=== PATIENT | female | born 1970 | race Caucasian/White ===

== ENCOUNTER 2024-02-06 12:31 | Emergency (ER) | payer BC ==
[~2024-02-06] VITALS: Ht 160 cm; Wt 81.6 kg
[2024-02-06 12:31] VITALS: BP_SYST 128; PULSE 87; RESP 18; TEMP 97.6; O2SAT 99
[2024-02-06] MEDS: ACETAMINOPHEN 500 MG TABLET PO ONE (13:25)
[2024-02-06] MEDS: KETOROLAC TROMETHAMINE 30 MG VIAL IM ONE (13:25)
[2024-02-06 13:51] VITALS: BP_SYST 128; PULSE 87; RESP 18; TEMP 97.6; O2SAT 99
== END 2024-02-06 13:51 | disposition home or self-care (01) ==
LOC: SED 12:31
DX: M26.69 Other specified disorders of temporomandibular joint (principal); H92.02 Otalgia, left ear; Z90.710 Acquired absence of both cervix and uterus
CPT/HCPCS: 99283; 96372; J1885